=== PATIENT | female | born 1955 | race Caucasian/White ===

== ENCOUNTER → 2023-02-07 | Outpatient (CLI) | payer MEDICARE, SELFPAY ==
[2023-02-07 16:36] LABS: Absolute Lymphocyte Count 2.19 X10^3/uL (0.83-4.51); Absolute Neutrophil Count 5.5 X10^3/uL (2.0-7.7); Basophil# 0.05 X10^3/uL; Basophil% 0.6 % (0-1); Eosinophil# 0.16 X10^3/uL; Eosinophils% 1.8 % (0-5); Hematocrit 42.2 % (37-47); Hemoglobin 13.4 g/dL (12.0-15.0); Lymphocyte # 2.19 X10^3/ul (0.83-4.51); Lymphocyte % 25.3 % (19-41); Mean Corp Hgb Conc 31.8 g/dL (32-36); Mean Corpuscular Volume 91.3 fL (81-99); Mean Platelet Vol. 8.9 fl (6.2-12.0); Monocyte% 8.1 % (0-10); NRBC Flagged by Analyzer 0 % (0-5); Neutrophil # 5.53 X10^3/uL (2.7-7.7); Neutrophil % 63.7 % (47-70); Platelet Count 289 K/mm3 (150-450); RBC Distribution Width CV 13.6 % (11.6-14.6); RBC Distribution Width SD 46.2 fl (35.1-43.9); Red Blood Count 4.62 M/mm3 (4.2-5.4); White Blood Count 8.7 K/mm3 (4.4-11.0)
[2023-02-07 17:56] LABS: Vitamin D,25 Hydroxy 45.6 ng/mL
[2023-02-07 18:03] LABS: AST(SGOT) 30 U/L (15-37); Alanine Aminotransfer ALT/SGPT 34 U/L (13-56); Albumin, Serum 3.9 g/dL (3.2-5.0); Alkaline Phosphatase 136 U/L (45-117); Anion Gap 7 (5-15); BUN 13 mg/dL (7-18); BUN/Creat Ratio 16.9 RATIO (10-20); Calcium,Total 9.8 mg/dL (8.5-10.1); Chloride 104 mmol/L (98-107); Creatinine, Serum 0.77 mg/dL (0.55-1.02); EST Glomerular Filtration Rate 79 mL/min (>60); Est Glom Filt Rate - Afr Amer 96 mL/min (>60); Globulin 4.1 g/dL (2.2-4.2); Glucose 98 mg/dL (74-106); Sodium Level 140 mmol/L (136-145); Thyroid Stim Hormone (TSH) 4.24 uIU/mL (0.358-3.74)
== END | disposition home or self-care (01) ==
LOC: LAB 16:19
PROVIDERS: PCP Family Medicine Geriatric Medicine; Visit Provider Family Medicine Geriatric Medicine
DX: E55.9 Vitamin D deficiency, unspecified (principal); R53.83 Other fatigue
CPT/HCPCS: 36415; 80053; 82306; 84443; 85025

== ENCOUNTER → 2023-03-19 | Outpatient (CLI) | payer MEDICARE, SELFPAY ==
--- NOTE | 2023-03-19 07:15 | CT_ITS ---
STUDY: LOW DOSE CT LUNG CANCER SCREENING REASON FOR EXAM: Female, 67 years old. 2-3 cigarettes per day x35 years RADIATION DOSAGE (If Supplied By Facility): CTDIvol = ( 3.02 ) mGy, DLP = ( 98.17 ) mGy TECHNIQUE: No contrast was administered. Low dose technique was utilized (average mAS-38 and kVp 120). 1.25 mm axial source images with a slice interval of 1.25-mm were reconstructed in lung windows. 2.5 mm axial source images with a slice interval of 2.5-mm were reconstructed in lung windows. 5.0 mm axial source images with a slice interval of 5.0-mm were reconstructed in soft tissue windows. COMPARISON: None. Findings: Lung windows show lungs to be normally expanded. Chronic interstitial changes noted in both lung phillips without an organized infiltrate, effusion, or suspicious noncalcified mass or nodule. Limited soft tissue windows show normal-appearing thyroid gland. Scattered subcentimeter short axis dimension likely reactive axillary, mediastinal or perihilar adenopathy. Calcified coronary vessels noted. Limited cuts through the upper abdomen do not show a suspicious abnormality. Bony structures show degenerative change CT/Low Dose CT Lung Screening IMPRESSION: IMPORTANT NOTES FOR USE: ACR Lung-RADS Version 1.1 Assessment Categories Release Date: 2018 Category: Coded 0-4 bases on nodule(s) with highest degree of suspicion. Negative screen is defined as categories 1 and 2; a positive screen is defined as categories 3 and 4. Category 3 and 4A nodules that are unchanged on interval CT should be coded as category 2, and individuals returned to screening in 12 months. Category 4X: Category 3 or 4 nodules with additional imaging findings that increase the suspicion of lung cancer, such as spiculation, GGN that doubles in size in 1 year, enlarged lymph notes, etc. Category Modifiers: S (significant finding unrelated to lung cancer) Electronically Signed: Surya Fernández MD at 9:37 EDT Reading Location ID and State: [facility] / [place] , Service support ,
[2023-03-19 11:37] LABS: T3 Uptake 32 % (30-39); Thyroid Stim Hormone (TSH) 4.26 uIU/mL (0.358-3.74)
[2023-03-21 07:08] LABS: Thyroxin Bind Glob (TBG) 19 ug/mL (13-39)
== END | disposition home or self-care (01) ==
PROVIDERS: PCP Family Medicine Geriatric Medicine; Referring Provider Family Medicine Geriatric Medicine; Visit Provider Family Medicine Geriatric Medicine
DX: Z12.2 Encounter for screening for malignant neoplasm of respiratory organs (principal); F17.210 Nicotine dependence, cigarettes, uncomplicated; E03.9 Hypothyroidism, unspecified
CPT/HCPCS: 36415; 71271; 84439; 84442; 84443; 84479

== ENCOUNTER → 2023-08-15 | Outpatient (CLI) | payer MEDICARE, SELFPAY ==
[2023-08-15 13:31] LABS: Absolute Lymphocyte Count 2.13 X10^3/uL (0.83-4.51); Absolute Neutrophil Count 4.3 X10^3/uL (2.0-7.7); Basophil# 0.07 X10^3/uL; Basophil% 0.9 % (0-1); Eosinophil# 0.24 X10^3/uL; Eosinophils% 3.2 % (0-5); Hematocrit 42.5 % (37-47); Hemoglobin 13.2 g/dL (12.0-15.0); Lymphocyte # 2.13 X10^3/ul (0.83-4.51); Lymphocyte % 28.8 % (19-41); Mean Corp Hgb Conc 31.1 g/dL (32-36); Mean Corpuscular Hgb 29.2 pg (27.0-32.0); Mean Platelet Vol. 9.9 fl (6.2-12.0); Monocyte# 0.63 X10^3/uL; Monocyte% 8.5 % (0-10); NRBC Flagged by Analyzer 0 % (0-5); Neutrophil % 58.3 % (47-70); Platelet Count 305 K/mm3 (150-450); RBC Distribution Width CV 13.6 % (11.6-14.6); Red Blood Count 4.52 M/mm3 (4.2-5.4); White Blood Count 7.4 K/mm3 (4.4-11.0)
[2023-08-15 13:49] LABS: Vitamin D,25 Hydroxy 70.3 ng/mL
[2023-08-15 14:05] LABS: ALB/GLOB Ratio 0.9 RATIO (0.9-2.4); AST(SGOT) 22 U/L (15-37); Alanine Aminotransfer ALT/SGPT 27 U/L (13-56); Albumin, Serum 3.7 g/dL (3.2-5.0); Alkaline Phosphatase 109 U/L (45-117); Anion Gap 5 (5-15); BUN 19 mg/dL (7-18); BUN/Creat Ratio 21.9 RATIO (10-20); Calcium,Total 9.7 mg/dL (8.5-10.1); Chloride 104 mmol/L (98-107); Creatinine, Serum 0.87 mg/dL (0.55-1.02); EST Glomerular Filtration Rate 69 mL/min (>60); Est Glom Filt Rate - Afr Amer 83 mL/min (>60); Globulin 3.9 g/dL (2.2-4.2); Glucose 109 mg/dL (74-106); Potassium 3.8 mmol/L (3.5-5.1); Protein, Total 7.6 g/dL (6.4-8.2); Sodium Level 138 mmol/L (136-145); Thyroid Stim Hormone (TSH) 3.72 uIU/mL (0.358-3.74)
== END | disposition home or self-care (01) ==
LOC: POLAB3 09:41
PROVIDERS: PCP Family Medicine Geriatric Medicine; Visit Provider Family Medicine Geriatric Medicine
DX: R53.83 Other fatigue (principal); E55.9 Vitamin D deficiency, unspecified
CPT/HCPCS: 36415; 80053; 82306; 84443; 85025

== ENCOUNTER → 2024-02-20 | Outpatient (CLI) | payer MEDICARE, SELFPAY ==
[2024-02-20 07:53] LABS: Absolute Lymphocyte Count 2.23 X10^3/uL (0.83-4.51); Absolute Neutrophil Count 4.1 X10^3/uL (2.0-7.7); Basophil# 0.08 X10^3/uL; Basophil% 1.1 % (0-1); Eosinophil# 0.18 X10^3/uL; Eosinophils% 2.5 % (0-5); Hematocrit 40.3 % (37-47); Hemoglobin 12.5 g/dL (12.0-15.0); Lymphocyte # 2.23 X10^3/ul (0.83-4.51); Lymphocyte % 31.2 % (19-41); Mean Corpuscular Hgb 28.8 pg (27.0-32.0); Mean Corpuscular Volume 92.9 fL (81-99); Mean Platelet Vol. 9.4 fl (6.2-12.0); Monocyte# 0.53 X10^3/uL; Monocyte% 7.4 % (0-10); NRBC Flagged by Analyzer 0 % (0-5); Neutrophil % 57.5 % (47-70); Platelet Count 272 K/mm3 (150-450); RBC Distribution Width CV 13.5 % (11.6-14.6); RBC Distribution Width SD 46.3 fl (35.1-43.9); Red Blood Count 4.34 M/mm3 (4.2-5.4); White Blood Count 7.1 K/mm3 (4.4-11.0)
[2024-02-20 08:41] LABS: ALB/GLOB Ratio 1.1 RATIO (0.9-2.4); AST(SGOT) 27 U/L (15-37); Alanine Aminotransfer ALT/SGPT 25 U/L (13-56); Albumin, Serum 3.9 g/dL (3.2-5.0); Alkaline Phosphatase 104 U/L (45-117); Anion Gap 5 (5-15); BUN 17 mg/dL (7-18); BUN/Creat Ratio 20.6 RATIO (10-20); Calcium,Total 9.8 mg/dL (8.5-10.1); Chloride 104 mmol/L (98-107); Creatinine, Serum 0.83 mg/dL (0.55-1.02); EST Glomerular Filtration Rate 72 mL/min (>60); Est Glom Filt Rate - Afr Amer 88 mL/min (>60); Globulin 3.6 g/dL (2.2-4.2); Glucose 149 mg/dL (74-106); Potassium 4.2 mmol/L (3.5-5.1); Protein, Total 7.5 g/dL (6.4-8.2); Sodium Level 138 mmol/L (136-145); Thyroid Stim Hormone (TSH) 4.74 uIU/mL (0.358-3.74)
[2024-02-20 16:41] LABS: Hemoglobin A1c 6.2 % (3.8-5.6)
[2024-02-20 18:18] LABS: Vitamin D,25 Hydroxy 83.1 ng/mL
== END | disposition home or self-care (01) ==
LOC: LAB 07:19
PROVIDERS: PCP Family Medicine Geriatric Medicine; Referring Provider Family Medicine Geriatric Medicine; Visit Provider Family Medicine Geriatric Medicine
DX: E03.9 Hypothyroidism, unspecified (principal); E55.9 Vitamin D deficiency, unspecified; R73.09 Other abnormal glucose; R53.83 Other fatigue
CPT/HCPCS: 36415; 80053; 82306; 83036; 84443; 85025

== ENCOUNTER → 2024-02-20 | Outpatient (CLI) | payer MEDICARE, SELFPAY ==
--- NOTE | 2024-02-20 07:45 | BI_ITS ---
MAMMOGRAPHY - BILATERAL SCREENING REASON FOR EXAM: Female, 68 years old. Routine annual screening examination. PERTINENT HISTORY: Non-contributory. TECHNIQUE: Digital bilateral breast ramiro (3D mammographic acquisition) in the CC and MLO projections. 2-D mediolateral oblique (MLO) and craniocaudad (CC) views of both breasts were obtained. CAD: Full Field Digital Mammography with Computer Added Detection was performed. COMPARISON: No comparison mammograms available at this time. If any prior films become available, an addendum to this report can be generated. FINDINGS: Breast Composition: There are scattered areas of fibroglandular density. There are no dominant masses or suspicious calcifications. Small benign-appearing bilateral axillary lymph nodes. No other significant abnormalities are identified. BI/SCRN MAMM (CAD)W/RAMIRO BILAT IMPRESSION: Negative screening mammogram. Yearly followup mammogram recommended. (A) ASSESSMENT CATEGORY: BIRADS Category 1: Negative. A letter regarding these results will be sent to the patient by the facility within 30 days. Approximately 10% of breast cancers are not detected by mammography. A normal mammogram should not delay biopsy of a clinically suspicious abnormality. [id number] Electronically Signed: Gary Bucio MD at 10:03 EDT ,
== END | disposition home or self-care (01) ==
LOC: OPBI 07:43
PROVIDERS: PCP Family Medicine Geriatric Medicine; Referring Provider Family Medicine Geriatric Medicine; Visit Provider Family Medicine Geriatric Medicine
DX: Z12.31 Encounter for screening mammogram for malignant neoplasm of breast (principal)
CPT/HCPCS: 77063; 77067

== ENCOUNTER → 2024-04-02 | Outpatient (CLI) | payer MEDICARE, SELFPAY ==
[2024-04-02 10:14] LABS: Hemoglobin A1c 6.3 % (3.8-5.6)
[2024-04-02 10:16] LABS: Thyroid Stim Hormone (TSH) 2.14 uIU/mL (0.358-3.74)
== END | disposition home or self-care (01) ==
LOC: LAB 08:37
PROVIDERS: PCP Family Medicine Geriatric Medicine; Visit Provider Family Medicine Geriatric Medicine
DX: E03.9 Hypothyroidism, unspecified (principal); R73.09 Other abnormal glucose
CPT/HCPCS: 36415; 83036; 84443

== ENCOUNTER → 2025-02-18 | Outpatient (CLI) | payer MEDICARE, SELFPAY ==
[2025-02-18 11:47] LABS: Absolute Neutrophil Count 4.7 X10^3/uL (2.0-7.7); Basophil# 0.06 X10^3/uL; Basophil% 0.8 % (0-1); Eosinophil# 0.23 X10^3/uL; Eosinophils% 2.9 % (0-5); Hematocrit 38.7 % (37-47); Hemoglobin 12.3 g/dL (12.0-15.0); Lymphocyte % 26.8 % (19-41); Mean Corp Hgb Conc 31.8 g/dL (32-36); Mean Corpuscular Volume 91.3 fL (81-99); Mean Platelet Vol. 9.9 fl (6.2-12.0); Monocyte# 0.69 X10^3/uL; Monocyte% 8.8 % (0-10); NRBC Flagged by Analyzer 0 % (0-5); Neutrophil # 4.73 X10^3/uL (2.7-7.7); Neutrophil % 60.2 % (47-70); Platelet Count 386 K/mm3 (150-450); RBC Distribution Width CV 13.3 % (11.6-14.6); Red Blood Count 4.24 M/mm3 (4.2-5.4); White Blood Count 7.9 K/mm3 (4.4-11.0)
[2025-02-18 12:33] LABS: ALB/GLOB Ratio 1.3 RATIO (0.9-2.4); AST(SGOT) 24 U/L (<=31); Alanine Aminotransfer ALT/SGPT 18 U/L (<=34); Albumin, Serum 4.1 g/dL (3.4-4.8); Alkaline Phosphatase 149 U/L (35-104); Anion Gap 12 (5-15); BUN 18 mg/dL (4-19); BUN/Creat Ratio 25.6 RATIO (10-20); Calcium,Total 10.2 mg/dL (7.6-11.0); Carbon Dioxide 25.4 mmol/L (21.0-32.0); Chloride 100 mmol/L (98-108); EST Glomerular Filtration Rate 92 (>60); Globulin 3.2 g/dL (2.2-4.2); Glucose 124 mg/dL (70-99); Protein, Total 7.3 g/dL (5.9-8.4); Sodium Level 137 mmol/L (133-145); Total Bilirubin 0.37 mg/dL (0.00-1.30); Vitamin D,25 Hydroxy 53.4 ng/mL (30-100)
== END | disposition home or self-care (01) ==
LOC: LAB 09:42
PROVIDERS: PCP Family Medicine Geriatric Medicine; Referring Provider Family Medicine Geriatric Medicine; Visit Provider Family Medicine Geriatric Medicine
DX: E55.9 Vitamin D deficiency, unspecified (principal); R53.83 Other fatigue
CPT/HCPCS: 36415; 80053; 82306; 84443; 85025

== ENCOUNTER → 2025-06-03 | Outpatient (CLI) | payer MEDICARE, SELFPAY ==
--- NOTE | 2025-06-03 15:28 | RAD_ITS ---
PROCEDURE: ELBOW MIN 3 VIEWS 06/03/2025 REASON FOR EXAM: PAIN IN LEFT ELBOW TECHNIQUE: ELBOW MIN 3 VIEWS Laterality: Left COMPARISON: None. FINDINGS: BONES: No acute fracture or focal osseous lesion. JOINTS: No dislocation. The joint spaces are normal. SOFT TISSUES: Questionable minimal swelling in the posterior elbow. RAD/Elbow min 3 Views IMPRESSION: No acute osseous abnormality. Reading Location: [id number]
== END | disposition home or self-care (01) ==
LOC: RAD 15:22
PROVIDERS: PCP Family Medicine Geriatric Medicine; Referring Provider Family Medicine Geriatric Medicine; Visit Provider Family Medicine Geriatric Medicine
DX: R51.9 Headache, unspecified (principal); G25.0 Essential tremor; M25.522 Pain in left elbow
CPT/HCPCS: 73080

== ENCOUNTER → 2025-06-26 | Outpatient (CLI) | payer MEDICARE, SELFPAY ==
--- NOTE | 2025-06-26 07:50 | CT_ITS ---
PROCEDURE: BRAIN/HEAD WITHOUT CONTRAST 06/26/2025 REASON FOR EXAM: CHRONIC HEADACHE, ESSENTIAL TREMOR TECHNIQUE: Procedure Code: CTBR Modality: CT Procedure: BRAIN/HEAD WITHOUT CONTRAST Coronal and Sagittal reconstruction series were provided. One or more dose reduction techniques were used (e.g., Automated exposure control, adjustment of the mA and/or kV according to patient size, use of iterative reconstruction technique. RADIATION DOSE SUMMARY: CTDlvol: 44.99 mGy DLP: 796.11 mGycm COMPARISON: None FINDINGS: Note: Images through the base of the brain and posterior fossa including the brainstem are slightly degraded by beam hardening artifact from the adjacent calvarium. Brain: There is no evidence of acute intracranial hemorrhage. There is mild global parenchymal volume loss. No focal extra-axial fluid collection is seen. Appearance of the basal cisterns is unremarkable. There is no posterior fossa Chiari malformation. There is intracranial calcific atherosclerosis. Slightly tortuous vertebral arteries contacting the brainstem. Mild periventricular and deep white matter attenuation changes noted consistent with small-vessel ischemic disease of indeterminate acuity. No parenchymal changes are seen suggestive of cytotoxic edema to indicate an acute territorial vascular infarct. Note is made that CT changes may lag clinical findings an acute stroke. If indicated, consider follow-up imaging or diffusion-weighted MRI. There is no midline shift or herniation. No evidence of pneumocephalus. Incidental intracranial calcifications noted. Ventricles: Mild prominence of the ventricles, commensurate with degree of parenchymal volume loss. The ventricles do not appear obstructed. Pituitary: The pituitary fossa does not appear enlarged. The pituitary stalk does not appear deviated. Soft tissues: No pericranial scalp hematoma. Orbits: Ocular postoperative changes noted bilaterally. Osseous: No acute calvarial fracture. No suspicious bone lesion. Visualized paranasal sinuses: No fluid in the paranasal sinuses. Mastoids: No fluid or opacification of mastoid air cells. Middle ear cavities: The visualized middle ear cavities are not opacified. CT/Brain/Head without Contrast IMPRESSION: No evidence of acute territorial major vessel infarct, mass effect or acute int racranial hemorrhage. - Intracranial atherosclerosis and mild small-vessel ischemic changes of indeterm inate acuity. - Parenchymal volume loss and associated ex vacuo ventricular distention. - Other findings discussed above in detail. Reading Location: [id number]
--- OUTSIDE RECORDS SUMMARY | 2025-06-26 07:50 | XMS RPT_ITS | CCD ---
Author Organization [facility] Care Team Providers Care Cargo Service Supervisor Name Role Phone Gilberto VELAZQUEZ, Dr. Pérez Ramirez Primary Care Provider [phone] Gilberto VELAZQUEZ, Dr. Pérez Ramirez Attending Provider Gilberto VELAZQUEZ, Dr. Pérez Ramirez Referring Provider Gilberto, Pérez Chi Referring Unavailable Gilberto, Pérez Chi Attending Unavailable Gilberto, Pérez Chi Primary Care Unavailable Gilberto, Pérez Chi Referring Unavailable Gilberto, Pérez Chi Attending Unavailable Gilberto, Pérez Chi Primary Care Unavailable Gilberto, Pérez Chi Referring Unavailable Gilberto, Pérez Chi Attending Unavailable Gilberto, Pérez Chi Primary Care Unavailable Gilberto, Pérez Chi Referring Unavailable Ozzy Mendez Attending Unavailable Gilberto, Pérez Chi Primary Care Unavailable Allergies Allergy Classification Reported Allergen(s) Allergy Type Date of Onset Reaction(s) Facility (2 sources) Povidone-Iodine Drug Allergy 06-22-2024 [facility] (2 sources) Vancomycin Drug Allergy 06-22-2024 [facility] (1 source) Povidone-Iodine Drug Allergy 06-22-2024 [facility] (1 source) Vancomycin Drug Allergy 06-22-2024 [facility] Medications Current Medications Medication Drug Class(es) Dates Sig (Normalized) Sig (Original) benzonatate 200 mg oral capsule (2 sources) Non-narcotic Antitussive Start: 06-22-2024 take 1 capsule by mouth three times daily as needed for cough Benzonatate 200 mg capsule Active 200 mg PO THREE TIMES A DAY as needed for cough 20 0 June 22, 2024 12:00am calcium carbonate 1500 mg oral tablet (2 sources) Start: 06-22-2024 take 1 tablet by mouth once daily Calcium Carbonate (Calcium 600) 600 mg calcium (1,500 mg) tablet Active 600 mg PO daily June 22, 2024 12:00am cholecalciferol 0.125 mg oral capsule (2 sources) Vitamin D Start: 06-22-2024 take 1 capsule by mouth once daily Cholecalciferol (Vitamin D3) 125 mcg (5,000 unit) capsule Active 125 ug PO daily June 22, 2024 12:00am dexamethasone 6 mg oral tablet (2 sources) Corticosteroid Start: 06-22-2024 take 1 tablet by mouth once daily Dexamethasone 6 mg tablet Active 6 mg PO DAILY 5 0 June 22, 2024 12:00am levothyroxine sodium 0.05 mg oral tablet (2 sources) l-Thyroxine Start: 06-22-2024 take 1 tablet by mouth once daily Levothyroxine 50 mcg tablet Active 50 ug PO daily June 22, 2024 12:00am primidone 50 mg oral tablet (2 sources) Anti-epileptic Agent Start: 06-22-2024 take 1 tablet by mouth once daily Primidone 50 mg tablet Active 50 mg PO daily June 22, 2024 12:00am Problems Active Problems Problem Classification Problem Date Documented Da te Episodic/Chronic Headache; including migraine (2 sources) Headache; including migraine; Translations: [Headache, unspecified] Onset: 06-11-2025 Nutritional deficiencies (1 source) Vitamin D deficiency, unspecified; Translations: [Vitamin D deficiency, unspecified] Onset: 02-24-2025 Chronic Other hereditary and degenerative nervous system conditions (1 source) Essential tremor; Translations: [Essential tremor] Onset: 06-17-2025 Chronic Past or Other Problems Problem Classification Problem Date Documented Da te Episodic/Chronic Malaise and fatigue (1 source) Other fatigue; Translations: [Other fatigue] Onset: 06-23-2024 Episodic Results Test Name Value Interpretation Reference Range Facility Elbow min 3 Viewson 06-03-20 25 Elbow min 3 Views [facility] [address] [place] [address] Elbow min 3 Views MR#: [id number] Acct: [id number] Name: SERA PENA Rep #: [id number] : 1955 F 69 From: Rachana Crabtree MD PCP: Dr. Pérez Macias MD Status: REG CLI Study: Elbow min 3 Views Date of Exam: 06/03/25 Exam# [id number] Ordering Dr: Pérez Macias MD PROCEDURE: ELBOW MIN 3 VIEWS 06/03/2025 REASON FOR EXAM: PAIN IN LEFT ELBOW TECHNIQUE: ELBOW MIN 3 VIEWS Laterality: Left COMPARISON: None. FINDINGS: BONES: No acute fracture or focal osseous lesion. JOINTS: No dislocation. The joint spaces are normal. SOFT TISSUES: Questionable minimal swelling in the posterior elbow. RAD/Elbow min 3 Views IMPRESSION: No acute osseous abnormality. Reading Location: [facility] CC: Dr. Pérez Macias MD Economic History Teacher: Signed Normal [facility] Absolute lymphocyte countOrd ered By: Pérez Macias on 02-18-2025 Lymphocytes Auto (Unsp spec) [#/Vol] 2.10 10*3/uL 0.83-4.51 [facility] Absolute neutrophil countOrd ered By: Pérez Macias on 02-18-2025 Neutrophils (Bld) [#/Vol] 4.7 10*3/uL 2.0-7.7 [facility] Anion gap in Serum or Plasma Ordered By: Pérez Macias on 02-18-2025 Anion gap [Moles/Vol] 12 mmol/L 02-18 [facility] Automated lymphocyte count a s percentage of total leukocytesOrdered By: Pérez Macias on 02-18-2025 Lymphocytes/100 WBC Auto (Unsp spec) 26.8 % 19-41 [facility] BUN/creatinine ratioOrdered By: Pérez Macias on 02-18-2025 Urea nitrogen/Creatinine [Mass ratio] 25.6 mg/mg High 10-20 [facility] Basophil percentageOrdered B y: Pérez Macias on 02-18-2025 Basophils/100 WBC (Bld) 0.8 % 0-1 [facility] Bilirubin, totalOrdered By: Pérez Macias on 02-18-2025 Bilirubin [Mass/Vol] 0.37 mg/dL 0.00-1.30 [facility] CBC W/Diff, Automatedon 02-04 Absolute Lymph 2.10 X10 3/uL Normal 0.83-4.51 [facility] Comment on above: Performed By: #### L 501.9520, L506.1001, L500.4050, L100.0100 #### [facility] [address] [place], [address] Absolute Neut 4.7 X10 3/uL Normal 2.0-7.7 [facility] Comment on above: Performed By: #### L [id number], L506.1001, L500.4050, L100.0100 #### [facility] [address] [place], [address] Basophils/100 WBC (Bld) 0.8 % Normal 0-1 [facility] Comment on above: Performed By: #### L [id number], L506.1001, L500.4050, L100.0100 #### [facility] [address] [place], [address] Eosinophils/100 WBC (Bld) 2.9 % Normal 0-5 [facility] Comment on above: Performed By: #### L 501.9520, L506.1001, L500.4050, L100.0100 #### [facility] [address] [place], [address] Erythrocyte distribution width (RBC) [Ratio] 13.3 % Normal 11.6-14.6 [facility] Comment on above: Performed By: #### L 501.9520, L506.1001, L500.4050, L100.0100 #### [facility] [address] [place], [address] Hematocrit (Bld) [Volume fraction] 38.7 % Normal 37-47 [facility] Comment on above: Performed By: #### L 501.9520, L506.1001, L500.4050, L100.0100 #### [facility] [address] [place], [address] Hemoglobin (Bld) [Mass/Vol] 12.3 g/dL Normal 12.0-15.0 [facility] Comment on above: Performed By: #### L 501.9520, L506.1001, L500.4050, L100.0100 #### [facility] [address] [place], [address] IG% 0.500 Normal 0.0-0.9 [facility] Comment on above: Result Comment: IG% - Immature Granulocytes (promyelocytes, myelocytes and metamyelocytes) > 1% indicates that a LEFT SHIFT is Present. Performed By: #### L 501.9520, L506.1001, L500.4050, L100.0100 #### [facility] [address] [place], [address] Lymphocytes/100 WBC (Bld) 26.8 % Normal 19-41 [facility] Comment on above: Performed By: #### L 501.9520, L506.1001, L500.4050, L100.0100 #### [facility] [address] [place], [address] MCH (RBC) [Entitic mass] 29.0 pg Normal 27.0-32.0 [facility] Comment on above: Performed By: #### L 501.9520, L506.1001, L500.4050, L100.0100 #### [facility] [address] [place], [address] MCHC (RBC) [Mass/Vol] 31.8 g/dL Low 32-36 [facility] Comment on above: Performed By: #### L 501.9520, L506.1001, L500.4050, L100.0100 #### [facility] [address] [place], [address] MCV (RBC) [Entitic vol] 91.3 fL Normal 81-99 [facility] Comment on above: Performed By: #### L 501.9520, L506.1001, L500.4050, L100.0100 #### [facility] [address] [place], [address] Monocytes/100 WBC (Bld) 8.8 % Normal 0-10 [facility] Comment on above: Performed By: #### L 501.9520, L506.1001, L500.4050, L100.0100 #### [facility] [address] [place], [address] Neutrophils/100 WBC (Bld) 60.2 % Normal 47-70 [facility] Comment on above: Performed By: #### L 501.9520, L506.1001, L500.4050, L100.0100 #### [facility] [address] [place], [address] Nucleated RBC (Bld) [#/Vol] 0 10*3/uL Normal 0-5 [facility] Comment on above: Performed By: #### L 501.9520, L506.1001, L500.4050, L100.0100 #### [facility] [address] [place], [address] Platelet mean volume (Bld) [Entitic vol] 9.9 fL Normal 6.2-12.0 [facility] Comment on above: Performed By: #### L 501.9520, L506.1001, L500.4050, L100.0100 #### [facility] [address] [place], [address] Platelets (Bld) [#/Vol] 386 10*3/uL Normal 150-450 [facility] Comment on above: Performed By: #### L 501.9520, L506.1001, L500.4050, L100.0100 #### [facility] [address] [place], [address] RBC (Bld) [#/Vol] 4.24 10*6/uL Normal 4.2-5.4 [facility] Comment on above: Performed By: #### L 501.9520, L506.1001, L500.4050, L100.0100 #### [facility] [address] [place], [address] RDW SD 45.0 fl High 35.1-43.9 [facility] Comment on above: Performed By: #### L 501.9520, L506.1001, L500.4050, L100.0100 #### [facility] [address] [place], [address] WBC (Bld) [#/Vol] 7.9 10*3/uL Normal 4.4-11.0 [facility] Comment on above: Performed By: #### L 501.9520, L506.1001, L500.4050, L100.0100 #### [facility] [address] [place], [address] Carbon dioxide, total [Moles /volume] in Central venous bloodOrdered By: Pérez Macias on 02-18-2025 CO2 [Moles/Vol] 25.4 mmol/L 21.0-32.0 [facility] Chloride assayOrdered By: Marvel Macias on 02-18-2025 Chloride [Moles/Vol] 100 mmol/L 98-108 [facility] Comprehensive Metabolic Prof ilon 02-18-2025 Albumin [Mass/Vol] 4.1 g/dL Normal 3.4-4.8 [facility] Comment on above: Order Comment: VBITD Performed By: #### L 501.9520, L506.1001, L500.4050, L100.0100 #### [facility] [address] [place], [address] Albumin/Globulin [Mass ratio] 1.3 {ratio} Normal 0.9-2.4 [facility] Comment on above: Order Comment: VBITD Performed By: #### L 501.9520, L506.1001, L500.4050, L100.0100 #### [facility] [address] [place], [address] ALK PHOS 149 U/L High 35-104 [facility] Comment on above: Order Comment: VBITD Performed By: #### L 501.9520, L506.1001, L500.4050, L100.0100 #### [facility] [address] [place], [address] ALT [Catalytic activity/Vol] 18 U/L Normal <=34 [facility] Comment on above: Order Comment: VBITD Performed By: #### L 501.9520, L506.1001, L500.4050, L100.0100 #### [facility] [address] [place], [address] AST [Catalytic activity/Vol] 24 U/L Normal <=31 [facility] Comment on above: Order Comment: VBITD Performed By: #### L 501.9520, L506.1001, L500.4050, L100.0100 #### [facility] [address] [place], [address] Bilirubin [Mass/Vol] 0.37 mg/dL Normal 0.00-1.30 [facility] Comment on above: Order Comment: VBITD Performed By: #### L 501.9520, L506.1001, L500.4050, L100.0100 #### [facility] [address] [place], [address] BUN/CRE 25.6 RATIO High 10-20 [facility] Comment on above: Order Comment: VBITD Performed By: #### L 501.9520, L506.1001, L500.4050, L100.0100 #### [facility] [address] [place], [address] Calcium [Mass/Vol] 10.2 mg/dL Normal 7.6-11.0 [facility] Comment on above: Order Comment: VBITD Performed By: #### L 501.9520, L506.1001, L500.4050, L100.0100 #### [facility] [address] [place], [address] Chloride [Moles/Vol] 100 mmol/L Normal 98-108 [facility] Comment on above: Order Comment: VBITD Performed By: #### L 501.9520, L506.1001, L500.4050, L100.0100 #### [facility] [address] [place], [address] CO2 [Moles/Vol] 25.4 mmol/L Normal 21.0-32.0 [facility] Comment on above: Order Comment: VBITD Performed By: #### L 501.9520, L506.1001, L500.4050, L100.0100 #### [facility] [address] [place], [address] Creatinine [Mass/Vol] 0.70 mg/dL Normal 0.70-1.20 [facility] Comment on above: Order Comment: VBITD Performed By: #### L 501.9520, L506.1001, L500.4050, L100.0100 #### [facility] [address] [place], [address] GAP 12 Normal 5-15 [facility] Comment on above: Order Comment: VBITD Performed By: #### L 501.9520, L506.1001, L500.4050, L100.0100 #### [facility] [address] [place], [address] GFR/1.73 sq M.predicted among non-blacks MDRD (S/P/Bld) [Vol rate/Area] 92 mL/min/{1.73_m2} Normal >60 [facility] Comment on above: Order Comment: VBITD Result Comment: mL/m in/1.73m2 CKD-EPI Creatinine Equation (2020) Performed By: #### L 501.9520, L506.1001, L500.4050, L100.0100 #### [facility] [address] [place], [address] Globulin (S) [Mass/Vol] 3.2 g/dL Normal 2.2-4.2 [facility] Comment on above: Order Comment: VBITD Performed By: #### L 501.9520, L506.1001, L500.4050, L100.0100 #### [facility] [address] [place], [address] Glucose [Mass/Vol] 124 mg/dL High 70-99 [facility] Comment on above: Order Comment: VBITD Performed By: #### L 501.9520, L506.1001, L500.4050, L100.0100 #### [facility] [address] [place], [address] Potassium [Moles/Vol] 4.0 mmol/L Normal 3.3-5.1 [facility] Comment on above: Order Comment: VBITD Performed By: #### L 501.9520, L506.1001, L500.4050, L100.0100 #### [facility] [address] [place], [address] Sodium [Moles/Vol] 137 mmol/L Normal 133-145 [facility] Comment on above: Order Comment: VBITD Performed By: #### L 501.9520, L506.1001, L500.4050, L100.0100 #### [facility] [address] [place], [address] T PROT 7.3 g/dL Normal 5.9-8.4 [facility] Comment on above: Order Comment: VBITD Performed By: #### L 501.9520, L506.1001, L500.4050, L100.0100 #### [facility] [address] [place], [address] Urea nitrogen [Mass/Vol] 18 mg/dL Normal 4-19 [facility] Comment on above: Order Comment: VBITD Performed By: #### L 501.9520, L506.1001, L500.4050, L100.0100 #### [facility] [address] [place], [address] Eosinophil percentageOrdered By: Pérez Macias on 02-18-2025 Eosinophils/100 WBC (Bld) 2.9 % 0-5 [facility] Erythrocyte distribution wid th ratioOrdered By: Pérez Macias on 02-18-2025 Erythrocyte distribution width (RBC) [Ratio] 13.3 % 11.6-14.6 [facility] Erythrocyte distribution wid th standard deviationOrdered By: Pérez Macias 02-18-2025 Erythrocyte distribution width (RBC) [Ratio] 45.0 fl High 35.1-43.9 [facility] Glomerular filtration rate ( GFR) estimation/1.73 sq m using serum, plasma, or whole bOrdered By: Pérez Macias on 02-18-2025 GFR/1.73 sq M.predicted among non-blacks MDRD (S/P/Bld) [Vol rate/Area] 92 mL/min/{1.73_m2} >60 [facility] Comment on above: mL/min/1.73m2 CKD-EP I Creatinine Equation (2020) Hematocrit Auto (Bld) [Volum e fraction]Ordered By: Pérez Macias 02-18-2025 Hematocrit (Bld) [Volume fraction] 38.7 % 37-47 [facility] Hemoglobin measurementOrdere d By: Pérez Macias 02-18-2025 Hemoglobin (Bld) [Mass/Vol] 12.3 g/dL 12.0-15.0 [facility] Immature granulocytes/100 WB C Auto (Bld)Ordered By: Pérez Macias 02-18-2025 Immature granulocytes/100 WBC (Bld) 0.500 % 0.0-0.9 [facility] Comment on above: IG% - Immature Granu locytes (promyelocytes, myelocytes and metamyelocytes) > 1% indicates that a LEFT SHIFT is Present. Laboratory - Chemistry and C hemistry - challengeOrdered By: Pérez Macias on 02-18-2025 AST [Catalytic activity/Vol] 24 U/L <32 [facility] MCV (mean corpuscular volume ) determinationOrdered By: Pérez Macias on 02-18-2025 MCV (RBC) [Entitic vol] 91.3 fL 81-99 [facility] Mean corpuscular hemoglobin (MCH) determinationOrdered By: Pérez Macias on 02-18-2025 MCH (RBC) [Entitic mass] 29.0 pg 27.0-32.0 [facility] Mean corpuscular hemoglobin concentration (MCHC) determinationOrdered By: Pérez Macias 02-18-2025 MCHC (RBC) [Mass/Vol] 31.8 g/dL Low 32-36 [facility] Mean platelet volume determi nationOrdered By: Pérez Macias on 02-18-2025 Platelet mean volume (Bld) [Entitic vol] 9.9 fL 6.2-12.0 [facility] Monocyte percentageOrdered B y: Pérez Macias on 02-18-2025 Monocytes/100 WBC (Bld) 8.8 % 0-10 [facility] Neutrophil percentageOrdered By: Pérez Macias 02-18-2025 Neutrophils/100 WBC (Bld) 60.2 % 47-70 [facility] Nucleated red blood cell per centageOrdered By: Pérez Macias on 02-18-2025 Nucleated RBC/100 WBC (Bld) [Ratio] 0 % 0-5 [facility] Platelet countOrdered By: Marvel Macias on 02-18-2025 Platelets (Bld) [#/Vol] 386 10*3/uL 150-450 [facility] Potassium measurement (mass/ volume)Ordered By: Pérez Macias on 02-18-2025 Potassium (Unsp spec) [Mass/Vol] 4.0 mmol/L 3.3-5.1 [facility] RBC Auto (Bld) [#/Vol]Ordere d By: Pérez Macias on 02-18-2025 RBC (Bld) [#/Vol] 4.24 10*6/uL 4.2-5.4 [facility] Serum creatinine measurement (mass/volume)Ordered By: Pérez Macias on 02-18-2025 Creatinine [Mass/Vol] 0.70 mg/dL 0.70-1.20 [facility] Serum globulin measurementOr dered By: Pérez Macias 02-18-2025 Globulin (S) [Mass/Vol] 3.2 g/dL 2.2-4.2 [facility] Serum glucose measurement (m ass/volume)Ordered By: Pérez Macias 02-18-2025 Glucose [Mass/Vol] 124 mg/dL High 70-99 [facility] Serum or plasma alanine mac otransferase (ALT) measurementOrdered By: Pérez Macias 02-18-2025 ALT [Catalytic activity/Vol] 18 U/L <35 [facility] Serum or plasma albumin arleen urement (mass/volume)Ordered By: Pérez Macias 02-18-2025 Albumin [Mass/Vol] 4.1 g/dL 3.4-4.8 [facility] Serum or plasma albumin/glob ulin mass ratioOrdered By: Pérez Macias 02-18-2025 Albumin/Globulin [Mass ratio] 1.3 {ratio} 0.9-2.4 [facility] Serum or plasma alkaline khushbu sphatase measurementOrdered By: Pérez Macias 02-18-2025 ALP [Catalytic activity/Vol] 149 U/L High 35-104 [facility] Serum or plasma calcium arleen urement (mass/volume)Ordered By: Pérez Macias 02-18-2025 Calcium [Mass/Vol] 10.2 mg/dL 7.6-11.0 [facility] Serum or plasma urea nitroge n measurement (mass/volume)Ordered By: Pérez Macias 02-18-2025 Urea nitrogen [Mass/Vol] 18 mg/dL 4-19 [facility] Sodium levelOrdered By: Pérez Macias 02-18-2025 Sodium [Moles/Vol] 137 mmol/L 133-145 [facility] TSH DL <= 0.005 mIU/L QnOrde red By: Pérez Macias on 02-18-2025 TSH Qn 1.270 uIU/mL 0.300-4.200 [facility] Thyroid Stim Hormone (TSH)on 02-18-2025 TSH 1.270 uIU/mL Normal 0.300-4.200 [facility] Comment on above: Performed By: #### L 501.9520, L506.1001, L500.4050, L100.0100 #### [facility] [address] [place], [address] Total proteinOrdered By: Pérez Macias on 02-18-2025 Protein [Mass/Vol] 7.3 g/dL 5.9-8.4 [facility] Vitamin D,25 Hydroxyon 02-18 Vitamin D 25-OH 53.4 ng/mL Normal 30-100 [facility] Comment on above: Result Comment: Mary Jo min D Status Deficiency: <20 ng/mL (50nmol/L) Insufficiency: 20-30 ng/mL (50-75 nmol/L) Sufficiency: 30-100 ng/mL (75-250 nmol/L) Toxicity: >100 ng/mL (>250 nmol/L) Performed By: #### L 501.9520, L506.1001, L500.4050, L100.0100 #### [facility] [address] [place], [place], [address] White blood cell (WBC) count Ordered By: Pérez Macias on 02-18-2025 WBC (Bld) [#/Vol] 7.9 10*3/uL 4.4-11.0 [facility] Urgent Care Visit Reporton 0 06-22-2024 Urgent Care Visit Report [facility] [address], [address] [place], [place] [address] OFFICE VISIT Date of Service: 06/22/24 MR#: [id number] Acct: [id number] Name: SERA PENA Rep #: [id number] : 1955 Provider: JOSE Martines Age/Sex: 68/F Location: [facility] Status: Signed Intake Vital Signs 06/22/24 08:07 Height 5 ft 5 in Weight: 180 lb BMI 29.9 BP 158/80 H Blood Pressure Location Lt brachial Position Sitting Respiration 18 Pulse 93 Pulse Source NIBP Temp 100.1 F H Temp Source Temporal Pulse Oximetry (%) 97 Oxygen Delivery Method room air Intake Visit Reasons: ST/SINUS PRES/CONGESTION/FEVER Chief Complaint: STONE, ST, congestion, fever [employer] Required: No Is patient in pain?: Yes Allergies povidone-iodine (From Betadine) Allergy (Mild, Verified 06/22/24 08:08) Swelling vancomycin Allergy (Mild, Verified 06/22/24 08:08) Hives Medications ???Medication ???Instructions ???Recorded ???Confirmed ???Type benzonatate 200 mg capsule 200 mg PO TID PRN cough #20 caps 06/22/24 06/22/24 Rx calcium carbonate (Calcium 600) 600 mg PO QDAY 06/22/24 06/22/24 History cholecalciferol (vitamin D3) 125 125 mcg PO QDAY 06/22/24 06/22/24 History mcg (5,000 unit) capsule dexamethasone 6 mg tablet 6 mg PO DAILY #5 tabs 06/22/24 06/22/24 Rx levothyroxine 50 mcg tablet 50 mcg PO QDAY 06/22/24 06/22/24 History primidone 50 mg tablet 50 mg PO QDAY 06/22/24 06/22/24 History Is last menstrual period known: No Post menopausal: Yes Patient : No Have you fallen in the past year?: No Nurse's Note: STONE, ST, congestion, fever x 2 days. denies cough. concern for covid HPI HPI Chief Complaint: STONE, ST, congestion, fever Details: SERA PENA, is a 68 F who presents to the office today for initial evaluations now clinic for approximately 36-48-hour history of fever, chills, cough, headache, myalgias, fatigue, sore throat, congestion/runny nose. No complaints of chest pain or shortness of breath or dyspnea on exertion. No dgdd-gek-rvfquty products taken to assist. Several close contacts with similar URI complaints. No other associated symptoms and no alleviating/aggravatin g factors. ROS Const Constitutional: No other (as above) Exam Const General: cooperative, healthy appearing and no acute distress Nutritional Appearance: average body habitus Orientation: alert, awake and oriented x3 [facility] Head: normal to inspection Ears: hearing grossly normal bilaterally, external ears normal, TM's normal bilaterally and EAC's normal Nose: external nose normal, nares normal, septum normal and nasal discharge clear Face and sinus: normal facial exam, sinuses nontender and face symmetric Mouth: oral mucosae normal, lip normal, tongue normal and oropharynx normal Throat: posterior oropharynx normal, tonsils normal, uvula midline and no postnasal drainage Eyes General: appearance normal, both eyes and all related structures Neck Neck: normal visual inspection, full ROM, no lymphadenopathy, no meningeal signs and supple Neck mass: No Thyroid: thyroid normal Lymphatic: no lymphadenopathy noted Chest Chest palpation inspection: normal inspection of the chest Resp Effort Inspection: normal respiratory effort, able to speak in complete sentences and cough Quality of cough: wet (Nonproductive in office today) Auscultation: Bilateral: Clear to Auscultation Cardio Palpation: normal PMI Rate: tachycardic Rhythm: regular rhythm Heart Sounds: S1 normal, S2 normal, no gallops, no murmurs and no rubs Pulses: radial pulses present GI Inspection: normal to inspection Palpation: soft and no hepatosplenomegaly Skin General: no rashes or lesions noted Neuro General: patient alert, patient awake and patient oriented x3 Cognition: normal cognition Speech: speech normal Psych Appearance: grossly normal Mental Status: mental status grossly normal Mood: congruent mood Affect: normal affect Speech and Movement: speech and movement normal Attitude: cooperative Diagnoses COVID-19 U07.1 Assessment and Plan Assessment and Plan (1) COVID-19: Status: Acute Plan: See POC results. Dexamethasone and Benzonatate as prescribed today. Supportive measures as instructed today. Patient aware of isolation recommendations and [facility] department notification. Follow-up with PCP in 5 to 7 days should symptoms not improve, ED sooner should symptoms worsen or any other concerns develop. Patient states acknowledging understanding all the above Results POC SARS AG POC SARS AG Positive Last Edit by Lesly Dewey on 06/22/24 08:15 POC FLU A B Office Flu A B Negative FLU A B Last Edit by Lesly Dewey on 06/22/24 08:15 Coding Level of Care Code Off vis,new,level 3 Asse (more content not included)... Normal [facility] Free thyroxine indexOrdered By: Dr. Macias on 03-19-2023 Free T4 index Calc [Mass/Vol] TNP [facility] Comment on above: Test not performed Laboratory - Chemistry and C hemistry - challengeOrdered By: Dr. Macias on 03-19-2023 Free T4 [Mass/Vol] 1.00 ng/dL 0.76-1.46 [facility] No Panel InformationOrdered By: Dr. Macias on 03-19-2023 Thyroid Stimulating Hormone (TSH) 4.26 uIU/mL 0.358-3.74 [facility] Serum or plasma thyroxine bi nding globulin (TBG) measurement (mass/volume)Ordered By: Dr. Macias on 03-19-2023 TBG [Mass/Vol] 19 ug/mL 13-39 [facility] Comment on above: Performed at: [address] [id number] Director: Joao Marshall MD, Phone: [phone] T3 uptakeOrdered By: Dr. Madison contreras on 03-19-2023 T3RU 32 % 30-39 [facility] Absolute lymphocyte countOrd ered By: Dr. Macias on 02-07-2023 Lymphocytes Auto (Unsp spec) [#/Vol] 2.19 10*3/uL 0.83-4.51 [facility] Basophil percentageOrdered B y: Dr. Macias on 02-07-2023 Basophils/100 WBC (Bld) 0.6 % 0-1 [facility] Bilirubin [Mass/Vol] 0.40 mg/dL 0.20-1.00 [facility] Comment on above: For patients on eltr ombopag therapy, use of Dimension [place] TBIL is not recommended. Chloride [Moles/Vol] 104 mmol/L 98-107 [facility] Eosinophils/100 WBC (Bld) 1.8 % 0-5 [facility] Glucose [Mass/Vol] 98 mg/dL 74-106 [facility] Neutrophils (Bld) [#/Vol] 5.5 10*3/uL 2.0-7.7 [facility] Neutrophils/100 WBC (Bld) 63.7 % 47-70 [facility] Potassium [Moles/Vol] 4.0 mmol/L 3.5-5.1 [facility] Protein [Mass/Vol] 8.0 g/dL 6.4-8.2 [facility] Sodium [Moles/Vol] 140 mmol/L 136-145 [facility] WBC (Bld) [#/Vol] 8.7 10*3/uL 4.4-11.0 [facility] Blood erythrocytes count (nu mber/volume)Ordered By: Dr. Macias on 02-07-2023 RBC (Bld) [#/Vol] 4.62 10*6/uL 4.2-5.4 [facility] Blood hemoglobin measurement (mass/volume)Ordered By: Dr. Macias on 02-07-2023 Hemoglobin (Bld) [Mass/Vol] 13.4 g/dL 12.0-15.0 [facility] Blood lymphocytes/100 leukoc ytesOrdered By: Dr. Macias on 02-07-2023 Lymphocytes/100 WBC (Bld) 25.3 % 19-41 [facility] Blood monocytes/100 leukocyt esOrdered By: Dr. Macias on 02-07-2023 Monocytes/100 WBC (Bld) 8.1 % 0-10 [facility] Blood platelet mean volumeOr dered By: Dr. Macias on 02-07-2023 Platelet mean volume (Bld) [Entitic vol] 8.9 fL 6.2-12.0 [facility] Determination of erythrocyte mean corpuscular volume (MCV)Ordered By: Dr. Macias on 02-07-2023 MCV (RBC) [Entitic vol] 91.3 fL 81-99 [facility] Hematocrit Auto (Bld) [Volum e fraction]Ordered By: Dr. Macias on 02-07-2023 Hematocrit (Bld) [Volume fraction] 42.2 % 37-47 [facility] Laboratory - Chemistry and C hemistry - challengeOrdered By: Dr. Macias on 02-07-2023 ALP [Catalytic activity/Vol] 136 U/L 45-117 [facility] ALT [Catalytic activity/Vol] 34 U/L 13-56 [facility] CO2 [Moles/Vol] 29.0 mmol/L 21.0-32.0 [facility] Globulin (S) [Mass/Vol] 4.1 g/dL 2.2-4.2 [facility] Urea nitrogen/Creatinine [Mass ratio] 16.9 mg/mg 10-20 [facility] Laboratory - Hematology and Cell countsOrdered By: Dr. Macias on 02-07-2023 Erythrocyte distribution width (RBC) [Entitic vol] 46.2 fL 35.1-43.9 [facility] Erythrocyte distribution width (RBC) [Ratio] 13.6 % 11.6-14.6 [facility] Immature granulocytes/100 WBC (Bld) 0.500 % 0.0-0.9 [facility] Comment on above: IG% - Immature Granu locytes (promyelocytes, myelocytes and metamyelocytes) > 1% indicates that a LEFT SHIFT is Present. MCH (RBC) [Entitic mass] 29.0 pg 27.0-32.0 [facility] Nucleated RBC/100 WBC (Bld) [Ratio] 0 % 0-5 [facility] MCHC Auto (RBC) [Mass/Vol]Or dered By: Dr. Macias on 02-07-2023 MCHC (RBC) [Mass/Vol] 31.8 g/dL 32-36 [facility] No Panel InformationOrdered By: Dr. Macias on 02-07-2023 Estimated GFR (MDRD) Amer 96 mL/min >60 [facility] Comment on above: GFR Calc Estimated GFR (MDRD) Non-Af Amer 79 mL/min >60 [facility] Comment on above: Non- GFR Calc Thyroid Stimulating Hormone (TSH) 4.24 uIU/mL 0.358-3.74 [facility] Vitamin D 25-Hydroxy 45.6 ng/mL [facility] Comment on above: Vitamin D 25(OH) Sta tus Range Deficiency <20 ng/mL (50nmol/L) Insufficiency 20 - 30 ng/mL (50 - 75 nmol/L) Sufficiency 30 - 100 ng/mL (75 - 250 nmol/L) Toxicity >100 ng/mL (>250 nmol/L) Platelets bldOrdered By: Dr. Macias on 02-07-2023 Platelets (Bld) [#/Vol] 289 10*3/uL 150-450 [facility] Serum or plasma albumin arleen urement (mass/volume)Ordered By: Dr. Macias on 02-07-2023 Albumin [Mass/Vol] 3.9 g/dL 3.2-5.0 [facility] Serum or plasma albumin/glob ulin mass ratioOrdered By: Dr. Macias on 02-07-2023 Albumin/Globulin [Mass ratio] 1.0 {ratio} 0.9-2.4 [facility] Serum or plasma calcium arleen urement (mass/volume)Ordered By: Dr. Macias on 02-07-2023 Calcium [Mass/Vol] 9.8 mg/dL 8.5-10.1 [facility] Serum or plasma creatinine m easurement (mass/volume)Ordered By: Dr. Macias on 02-07-2023 Creatinine [Mass/Vol] 0.77 mg/dL 0.55-1.02 [facility] Comment on above: The validity of the calculated GFR & GFRAA in patients over 70 years has not been determined. Clinical correlation is essential. Serum or plasma urea nitroge n measurement (mass/volume)Ordered By: Dr. Macias on 02-07-2023 Urea nitrogen [Mass/Vol] 13 mg/dL 7-18 [facility] Thin prep Papanicolaou smear with manual screeningOrdered By: Dr. Macias on 02-07-2023 Thin prep Papanicolaou smear with manual screening 30 U/L 15-37 [facility] Thin prep Papanicolaou smear with manual screening 7 5-15 [facility] Encounters Encounter Date Encounter Type Care Provider Facility Start: 06-26-2025 ambulatory Pérez Macias Facility:[facility] Start: 06-03-2025 End: 06-03-[address] Pérez Macias MD Work Phone: -Radiology [facility] Start: 06-03-2025 End: 06-03-[address] Pérez Macias MD -Radiology [facility] Work Phone: Start: 06-03-2025 End: 06-03-2025 ambulatory Pérez Macias Facility:[facility] Start: 02-18-2025 End: 02-18-[address] Pérez Macias MD Work Phone: [facility] Work Phone: Start: 02-18-2025 End: 02-18-[address] Pérez Macias MD -Laboratory Work Phone: Start: 02-18-2025 End: 02-18-2025 ambulatory [facility] Facility:[facility] Start: 06-22-2024 End: 06-22-2024 ambulatory [facility] Facility:[facility] Start: 03-19-2023 End: 03-19-2023 ambulatory [facility] Work Phone: Start: 03-19-2023 End: 03-19-2023 Patient encounter procedure [facility]-Cat Scan, [facility] Start: 02-07-2023 End: 02-07-2023 ambulatory [facility] Work Phone: Start: 02-07-2023 End: 02-07-2023 Patient encounter procedure [facility]-Laboratory Procedures Date Procedure Procedure Detail Performing Clinician Start: 06-03-2025 Plain x-ray of elbow Dr Yohannes Macias MD Work Phone: Start: 02-18-2025 Vitamin D, 25-hydrox y measurement Dr. Pérez Macias MD Work Phone: Comment on above: Vitamin D StatusDefi ciency: <20 ng/mL (50nmol/L)Insufficiency: 20-30 ng/mL (50-75 nmol/L)Sufficiency: 30-100 ng/mL (75-250 nmol/L)Toxicity: >100 ng/mL (>250 nmol/L) Start: 03-19-2023 CT of chest Payers Date Payer Category Payer Private Health Insurance 101 [id number] 2024 Self-pay Unknown [id number] Unknown [id number] Unknown [id number] [id number] Unknown [id number] [id number] Social History Date Type Detail Facility [facility] if ever smoked [facility] Work Phone: Start: 1955 Sex Assigned At Female [facility] Tobacco smoking stat [facility] Unknown if ever smoked [facility] Work Phone: Radiology Diagnostic study note 06-03-2025 Note Date & Type Note Facility 06-03-2025 Radiology Diagnostic study note [facility] [address] [place] [address] Elbow min 3 Views MR#: [id number] Acct: [id number] Name: SERA PENA Rep #: [id number] : 1955 F 69 From: Fei Crabtree MD PCP: Dr. Pérez Macias MD Status: REG C ROBEL Study:Elbow min 3 Views Date of Exam: Exam# [id number] Ordering Dr: Pérez Macias MD PROCEDURE: ELBOW MIN 3 VIEWS 06/03/2025 REASON FOR EXAM: PAIN IN LEFT ELBOW TECHNIQUE: ELBOW MIN 3 VIEWS Laterality: Left COMPARISON: None. FINDINGS: BONES: No acute fracture or focal osseous lesion. JOINTS: No dislocation. The joint spaces are normal. SOFT TISSUES: Questionable minimal swelling in the posterior elbow. RAD/Elbow min 3 Views IMPRESSION: No acute osseous abnormality. Reading Location: [id number] CC: Dr. Pérez Macias MD ~ Economic History Teacher: Signed [facility] Evaluation note Note Date & Type Note Facility Evaluation note No assessment information availa ble [facility] Work Phone: Reason for referral (narrative) Note Date & Type Note Facility Reason for referral (narrative) No reason for referral information available [facility] Work Phone: Chief Complaint and Reason for Visit Chief Complaint SCREENING Chief Complaint Admit Date Pain in left elbow June 03, 2025 3: 20pm Summary Purpose Family History No Family History Records Found Advance Directives No Advanced Directives Records Found Additional Source Comments Care Teams (unrecognized sec tion and content) Team Status: Active Member Role Status Dates Dr. Pérez Macias MD Primary Care Provider Active Team Status: Inactive Member Role Status Dates Dr. Pérez Macias MD Primary Care Provider, Attending Provider Active Team Status: Inactive Member Role Status Dates Dr. Pérez Macias MD Primary Care Provi krishan, Attending Provider, Referring Provider Active Team Status: Inactive Member Role Status Dates Dr. Pérez Macias MD Primary Care Provider Active Start: February 18, 2025 End: February 18, 2025 Dr. Pérez Macias MD Attending Provider Active Start: February 18, 2025 End: February 18, 2025 Dr. Pérez Macias MD Referring Provider Active Start: February 18, 2025 End: February 18, 2025 Team Status: Active Member Role/Relationship Status Dates Dr. Pérez Macias MD Primary Care Provider Active Team Status: Inactive Member Role/Relationship Status Dates Dr. Pérez Macias MD Primary Care Provider Active Start: February 18, 2025 End: February 18, 2025 Dr. Pérez Macias MD Attending Provider Active Start: February 18, 2025 End: February 18, 2025 Dr. Pérez Macias MD Referring Provider Active Start: February 18, 2025 End: February 18, 2025 Team Status: Inactive Member Role/Relationship Status Dates Dr. Pérez Macias MD Primary Care Provider Active Start: June 03, 2025 End: June 03, 2025 Dr. Pérez Macias MD Attending Provider Active Start: June 03, 2025 End: June 03, 2025 Dr. Pérez Macias MD Referring Provider Active Start: June 03, 2025 End: June 03, 2025 Goals (unrecognized section and content) Goals may be documented in a n alternate sectionGoals may be documented in an alternate sectionGoals may be documented in an alternate sectionGoals may be documented in an alternate section INFORMATION SOURCE (unrecogn ized section and content) DATE CREATED AUTHOR 06/20/2025 [facility] FOR RECORDS PERTAINING TO PATIENTS WHO ARE OR HAVE BEEN ENROLLED IN A CHEMICAL DEPENDENCY/SUBSTANCEABUSE PROGRAM, SOME INFORMATION MAY BE OMITTED. This clinical summary was aggregated from multiple sources. Caution should be exercised in using it in the provision of clinical care. This summary normalizes information from multiple sources, and as a consequence, information in this document may materially change the coding, format and clinical context of patient data. In addition, data may be omitted in some cases. CLINICAL DECISIONS SHOULD BE BASED ON THE PRIMARY CLINICAL RECORDS. [facility] [employer], [facility]. provides no warranty or guarantee of the accuracy or completeness of information in this document.
== END | disposition home or self-care (01) ==
LOC: CT 07:48
PROVIDERS: PCP Family Medicine Geriatric Medicine; Referring Provider Family Medicine Geriatric Medicine; Visit Provider Family Medicine Geriatric Medicine
DX: R51.9 Headache, unspecified (principal); G25.0 Essential tremor
CPT/HCPCS: 70450